=== PATIENT | female | born 1985 | race African-American/Black ===

== ENCOUNTER 2016-12-26 14:07 | Emergency (ER) | payer MEDICAID ==
[~2016-12-26] VITALS: Ht 157.5 cm; Wt 68.0 kg
[2016-12-26 14:09] VITALS: BP 153/76; PULSE 78; RESP 20; TEMP 97.9; O2SAT 100
--- NOTE | 2016-12-26 14:44 | PD ---
HPI Chief Complaint: Injury Time Seen by Provider: 14:39 Travel History International Travel<30 days: No Contact w/Intl Traveler<30days: No Traveled to known affect area: No History of Present Illness HPI 31-year-old Afro-Ind[place]ian female coming in with 3 day history of right dorsal hand and forearm pain. Patient states she was working, when the door in the room was caught by the wind and slammed into her right forearm. She states at first it wasn't that bad but has gotten progressively worse over the past 3 days. Patient states increased pain with gripping, trying to lift, or flexion and extension of the wrist. Patient states no pain in the elbow or shoulder. Patient has not taken anything for it. She states the pain is an 8/10. It is worse with movement or compression. She has no other injuries. She is allergic to shellfish. PFSH Past Medical History Depression: Yes Diminished Hearing: No Respiratory: Yes (FREQUENT BRONCHITIS) Immunizations Current: Yes : 4 Para: 3 Miscarriage: 1 Tubal Ligation: Yes (2009) Past Surgical History Abdominal Surgery: Yes (C SEC X 4) Section: Yes Hysterectomy: No (tubal) Social History Alcohol Use: Yes (OCC.) Tobacco Use: No Substance Use: Yes (MARIJUANA) Allergies-Medications (Allergen,Severity, Reaction): Coded Allergies: Shellfish (Verified Allergy, Mild, HIVES, 11/23/15) Reported Meds & Prescriptions Reported Meds & Active Scripts Active No Active Prescriptions or Reported Medications Review of Systems Except as stated in HPI: all other systems reviewed are Neg General / Constitutional: No: Fever Eyes: No: Visual changes HENT: No: Headaches Cardiovascular: No: Chest Pain or Discomfort Respiratory: No: Shortness of Breath Gastrointestinal: No: Abdominal Pain Genitourinary: No: Dysuria Musculoskeletal: Positive: Myalgias, Limited ROM, Pain (see history of present illness.), No: Arthralgias Skin: No Rash Neurologic: No: Weakness Psychiatric: No: Depression Endocrine: No: Polydipsia Hematologic/Lymphatic: No: Easy Bruising Physical Exam Narrative GENERAL: Patient appears in gbop-ho-wfghzjxn distress. SKIN: Warm and dry. No obvious signs of trauma. Normal color. Normal turgor. No ecchymosis. HEAD: Atraumatic. Normocephalic. EYES: Pupils equal and round. No scleral icterus. No injection or drainage. ENT: No nasal bleeding or discharge. Mucous membranes pink and moist. Normal pharynx. NECK: Trachea midline. Neck is supple nontender. CARDIOVASCULAR: Regular rate and rhythm. RESPIRATORY: No accessory muscle use. Clear to auscultation. Breath sounds equal bilaterally. GASTROINTESTINAL: Abdomen soft, non-tender, nondistended. Hepatic and splenic margins not palpable. MUSCULOSKELETAL: Extremities without clubbing, cyanosis, or edema. No obvious deformities. Patient has pain with palpation to the right dorsal lateral hand and right dorsal forearm consistent with the extensor tendons. 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 It is worse with supination and pronation as well as with flexion and extension of the wrist. There is no pain in the right. NEUROLOGICAL: Awake and alert. No obvious cranial nerve deficits. Motor grossly within normal limits. Five out of 5 muscle strength in the arms and legs. Normal speech. PSYCHIATRIC: Appropriate mood and affect; insight and judgment normal. Data Data Last Documented VS Vital Signs Date Time Temp Pulse Resp B/P Pulse Ox O2 Delivery O2 Flow Rate FiO2 12/26/16 14:36 Room Air 12/26/16 14:09 97.9 78 20 153/76 100 Orders Forearm (2vws) (12/26/16 14:37) Wrist, Complete ([id number]) (12/26/16 14:37) Ice/Cold Pack (12/26/16 14:37) Ibuprofen (Motrin) (12/26/16 14:45) Splinting (12/26/16 ) Sling Cradle Arm (12/26/16 ) MDM Medical Decision Making Medical Screen Exam Complete: Yes Emergency Medical Condition: Yes Differential Diagnosis Right forearm contusion. Right forearm tendinitis. Possible fracture. Possible compartment syndrome. Narrative Course Patient is medically stable at time of exam. Patient is given 800 mg of ibuprofen by mouth. X-rays of the right wrist and forearm are ordered. Forearm x-ray is negative. Wrist x-ray shows possible triquetral fracture of unknown duration. Patient is placed in a sugar tong splint with sling. Patient is given tramadol 50 mg one every 6 hours when necessary pain. Patient follow-up with Dr. Yoo to ensure healing and verify true fracture. Note for work is given. Patient is to wear the splint and sling at all times until cleared by the hand surgeon. Diagnosis Primary Impression: Right wrist fracture Qualified Code: S62.101A - Right wrist fracture, closed, initial encounter Referrals: Dennis Yoo III, MD call for appointment Patient Instructions: General Instructions Departure Forms: Work Release Enter return to work date: Dec 27, 2016 Special Instructions: Patient cannot use right hand or arm until cleared by orthopedic. Additional Instructions: Wrist x-ray shows possible triquetral fracture of unknown duration. Patient is placed in a sugar tong splint with sling. Patient is given tramadol 50 mg one every 6 hours when necessary pain. Patient follow-up with Dr. Yoo to ensure healing and verify true fracture. Note for work is given. Patient is to wear the splint and sling at all times until cleared by the hand surgeon. Med/Other Pt SpecificInfo: Prescription(s) given Scripts No Active Prescriptions or Reported Meds Disposition: 01 DISCHARGE HOME Condition: Stable Damon Rivera Dec 26, 2016 14:44
[2016-12-26] MEDS ORDERED: IBUPROFEN 800 MG TAB PO ONE (14:45)
--- NOTE | 2016-12-26 15:08 | RADRPT ---
EXAM DATE/TIME: 12/26/2016 14:56 [facility] COMPARISON: No previous studies available for comparison. INDICATIONS : Right wrist pain, door slammed on wrist. MEDICAL HISTORY : None. SURGICAL HISTORY : None. ENCOUNTER: Initial ACUITY: 4 - 6 days PAIN SCORE: 10/10 LOCATION: Right wrist FINDINGS: 3 views of the right wrist. 4 mm ossific density posteriorly on the lateral view likely representing an age-indeterminate triquetrum fracture. No other evidence of fracture. Alignment within normal limi ts. CONCLUSION: Age-indeterminate small dorsal triquetrum fracture. Mariusz Jimenez MD on December 26, 2016 at 15:04 Board Certified Radiologist. This report was verified electronically.
--- NOTE | 2016-12-26 15:09 | RADRPT ---
EXAM DATE/TIME: 12/26/2016 14:59 [facility] COMPARISON: No previous studies available for comparison. INDICATIONS : Right forearm pain, door slammed on arm. MEDICAL HISTORY : None. SURGICAL HISTORY : None. ENCOUNTER: Initial ACUITY: 4 - 6 days PAIN SCORE: 10/10 LOCATION: Right distal forearm FINDINGS: 2 views of the right forearm. Bone alignment within normal limits. No evidence of fracture. CONCLUSION: No evidence of fracture. Mariusz Jimenez MD on December 26, 2016 at 15:06 Board Certified Radiologist. This report was verified electronically.
[2016-12-26] MEDS ORDERED: TRAM50TA PO (15:34)
== END 2016-12-26 16:48 | disposition home or self-care (01) ==
LOC: NEPB 14:07
DX: S62.111A Displaced fracture of triquetrum [cuneiform] bone, right wrist, initial encounter for closed fracture (principal); W23.0XXA Caught, crushed, jammed, or pinched between moving objects, initial encounter
CPT/HCPCS: 29125; 73090; 73110

== ENCOUNTER 2017-01-12 09:19 | Emergency (ER) | payer MEDICAID ==
[~2017-01-12] VITALS: Ht 157.5 cm; Wt 78.0 kg
[~2017-01-12 09:19] MED LIST: TRAM50TA PO
[2017-01-12 09:21] VITALS: BP 159/78; PULSE 74; RESP 20; TEMP 97.8; O2SAT 98
--- NOTE | 2017-01-12 09:47 | PD ---
HPI Chief Complaint: Injury Time Seen by Provider: 09:47 Travel History International Travel<30 days: No Contact w/Intl Traveler<30days: No Traveled to known affect area: No History of Present Illness HPI 31-year-old female presents to the emergency room for evaluation of right wrist pain. 3 weeks ago patient sustained an injury to her right wrist after a door flung open onto her wrist. She was seen in our emergency department at that time and diagnosed with a right triquetral fracture, placed in a splint and instructed to follow up with hand specialist. She has not followed up with a hand specialist. She is here today because she is having pain in her right wrist and has not had follow-up. Denies any new injury or trauma to her wrist. Denies any numbness or tingling, weakness, fever, chills, swelling. No other complaints. PFSH Past Medical History Depression: Yes Diminished Hearing: No Respiratory: Yes (FREQUENT BRONCHITIS) Immunizations Current: Yes LMP: 12/19/16 : 4 Para: 3 Miscarriage: 1 Tubal Ligation: Yes (2009) Past Surgical History Abdominal Surgery: Yes (C SEC X 4) Section: Yes Hysterectomy: No (tubal) Social History Alcohol Use: Yes (OCC.) Tobacco Use: No Substance Use: Yes (MARIJUANA) Allergies-Medications (Allergen,Severity, Reaction): Coded Allergies: Shellfish (Verified Allergy, Mild, HIVES, 01/12/17) Reported Meds & Prescriptions Reported Meds & Active Scripts Active Tramadol (Tramadol HCl) 50 Mg Tab 50 Mg PO Q6H PRN Review of Systems Except as stated in HPI: all other systems reviewed are Neg Physical Exam Narrative GENERAL: Well-nourished and well-developed pleasant female patient in no acute distress who is nontoxic appearing. SKIN: Warm and dry. HEAD: Normocephalic and atraumatic. EYES: No injection, drainage, or hyphema noted. PERRLA. EOMI. ENT: No nasal drainage noted. Oropharynx is clear. NECK: Supple and the trachea is midline. CARDIOVASCULAR: Regular rate and rhythm. RESPIRATORY: Breath sounds are equal bilaterally with no accessory muscle use, wheezing, rhonchi, or crackles. MUSCULOSKELETAL: Tenderness to palpation of radial aspect of right wrist. No tenderness along the ulnar aspect. No swelling. Patient is able to make a fist , international representative strength is 5/5. No obvious deformities, swelling, cyanosis, or ecchymosis is present throughout the upper and lower extremities. Patient has full range of motion without any signs of neurovascular compromise. Capillary refills within normal limits. NEUROLOGICAL: Awake, alert, and oriented. Normal speech and gait. Cranial nerves are grossly intact. Data Data Last Documented VS Vital Signs Date Time Temp Pulse Resp B/P Pulse Ox O2 Delivery O2 Flow Rate FiO2 01/12/17 09:21 97.8 74 20 159/78 98 Room Air Orders Splint Or Brace Apply/Monitor (01/12/17 09:46) Mandatory Outpatient Referral (01/12/17 09:47) [facility] Medical Decision Making Medical Screen Exam Complete: Yes Emergency Medical Condition: Yes Differential Diagnosis Right wrist fracture versus wrist sprain versus splint replacement Narrative Course 21-year-old female presents to the emergency department for evaluation of right wrist pain for 3 weeks. Patient is afebrile, vital signs are stable. She sustained an injury to her right wrist 3 weeks ago and was seen here and diagnosed with a right triquetral fracture. I reviewed the x-rays and this is unknown whether it is acute or subacute. She is having pain on the radial side , she had no bony injuries to the radial side of her right wrist. The right wrist appears benign, right upper extremity is neurovascularly intact. She never followed up with hand specialist as an outpatient. We'll replace her splint and order a mandatory outpatient referral to hand surgery. She is stable for discharge. Diagnosis Primary Impression: Right wrist fracture Qualified Code: S62.101D - Right wrist fracture, with routine healing, subsequent encounter Referrals: Hand Surgeon Patient Instructions: General Instructions, Wrist Fracture in Adults (ED) Additional Instructions: Take [id number]-tyl-[id number] ibuprofen or tylenol as directed on the box. Follow-up with a hand surgeon. Return to the ED for any acute worsening of symptoms. Med/Other Pt SpecificInfo: No Change to Meds Disposition: 01 DISCHARGE HOME Condition: Stable Savana Devries Jan 12, 2017 09:47
== END 2017-01-12 10:41 | disposition home or self-care (01) ==
LOC: NEPB 09:19
DX: S62.111D Displaced fracture of triquetrum [cuneiform] bone, right wrist, subsequent encounter for fracture with routine healing (principal); Z86.59 Personal history of other mental and behavioral disorders; Z87.09 Personal history of other diseases of the respiratory system; X58.XXXD Exposure to other specified factors, subsequent encounter
CPT/HCPCS: 29125

== ENCOUNTER 2018-02-05 11:07 | Emergency (ER) | payer SELFPAY ==
[~2018-02-05] VITALS: Ht 157.5 cm; Wt 68.0 kg
[2018-02-05 11:14] VITALS: BP 137/83; PULSE 97; RESP 22; TEMP 99; O2SAT 98
[2018-02-05 12:20] LABS: BACTERIA, URINE RARE /hpf; BILIRUBIN, URINE NEG (NEG); BLOOD, URINE MOD (NEG); GLUCOSE,URINE NEG (NEG); KETONE, URINE NEG (NEG); MUCUS URINE FEW /lpf (OCC); NITRITE,URINE NEG (NEG); SQUAMOUS EPITHELIAL CELL URINE 12 /hpf (0-5); URINE COLOR YELLOW (YELLW/STRAW); URINE LEUKOCYTE ESTERASE TRACE (NEG)
[2018-02-05] MEDS ORDERED: OSEL75 PO (13:17)
--- NOTE | 2018-02-05 13:17 | PD ---
HPI . Myalgias Chief Complaint: Cold / Flu Symptoms Time Seen by Provider: 12:44 Travel History International Travel<30 days: No Contact w/Intl Traveler<30days: No Traveled to known affect area: No History of Present Illness HPI Patient presents with the acute onset of myalgias. They started yesterday. She rates her pain as 10/10. She took ibuprofen 400 mg earlier today with no relief of her symptoms. Associated symptoms include cough, subjective fevers and chills, urinary frequency. The context is that her daughter was seen in the pediatric emergency department just a little while ago and was diagnosed with the flu. [facility] Past Medical History Depression: Yes Diminished Hearing: No Respiratory: Yes (FREQUENT BRONCHITIS) Immunizations Current: Yes ?: Not LMP: 02/04/18 : 4 Para: 3 Miscarriage: 1 Tubal Ligation: Yes (2009) Past Surgical History Abdominal Surgery: Yes (C SEC X 4) Section: Yes Hysterectomy: No (tubal) Social History Alcohol Use: Yes (OCC.) Tobacco Use: No Substance Use: Yes (MARIJUANA) Allergies-Medications (Allergen,Severity, Reaction): Coded Allergies: shellfish derived (Unverified Allergy, Mild, HIVES, 07/07/17) Reported Meds & Prescriptions Reported Meds & Active Scripts Active Tramadol (Tramadol HCl) 50 Mg Tab 50 Mg PO Q6H PRN Review of Systems Except as stated in HPI: all other systems reviewed are Neg General / Constitutional: Positive: Fever, Chills HENT: Positive: Rhinorrhea, Congestion Respiratory: Positive: Cough Genitourinary: Positive: Frequency Musculoskeletal: Positive: Myalgias Physical Exam Narrative GENERAL: Awake and alert and in no acute distress. SKIN: Warm and dry. HEAD: Normocephalic/atraumatic. EYES: Pupils are equal. Extraocular movements are intact. ENT: Edema of the nasal turbinates. Oropharynx is clear. NECK: Normal range of motion. No cervical lymphadenopathy. Neck is supple. CARDIOVASCULAR: Regular rate and rhythm. RESPIRATORY: Nonlabored respirations. Lungs are clear to auscultation. MUSCULOSKELETAL: Atraumatic. NEUROLOGICAL: Nonfocal. PSYCHIATRIC: Appropriate mood and affect. Data Data Last Documented VS Vital Signs Date Time Temp Pulse Resp B/P (MAP) Pulse Ox O2 Delivery O2 Flow Rate FiO2 02/05/18 11:14 99.0 97 22 137/83 (101) 98 Orders Orders Urinalysis - C+S If Indicated (02/05/18 11:16) Ed Urine Pregnancytest Poc (02/05/18 11:16) Labs Laboratory Tests Test 02/05/18 11:22 Urine Color YELLOW Urine Turbidity HAZY Urine pH 8.0 Urine Specific [place] 1.034 Urine Protein TRACE mg/dL Urine Glucose (UA) NEG mg/dL Urine Ketones NEG mg/dL Urine Occult Blood MOD Urine Nitrite NEG Urine Bilirubin NEG Urine Urobilinogen LESS THAN 2.0 MG/DL Urine Leukocyte Esterase TRACE Urine RBC 3 /hpf Urine WBC 3 /hpf Urine Squamous Epithelial Cells 12 /hpf Urine Bacteria RARE /hpf Urine Mucus FEW /lpf Microscopic Urinalysis Comment CULT NOT INDICATED MDM Medical Decision Making Medical Screen Exam Complete: Yes Emergency Medical Condition: Yes Differential Diagnosis Differential diagnosis of fever includes but is not limited to viral illness, strep throat, otitis media, pneumonia, sepsis, UTI Narrative Course This patient presents with a chief complaint of myalgias, subjective fevers and chills, cough, rhinorrhea. Her daughter was just diagnosed with the flu. UA is negative for infection. She will be treated for the flu with Tamiflu. She has been instructed in the treatment of symptoms. Diagnosis Primary Impression: Influenza Patient Instructions: General Instructions, Influenza (DC) Additional Instructions: I recommend the use of a Neti Pot. You may use a nasal spray such as Afrin for up to 3 days as needed for nasal congestion. You may take an ajxz-tde-isgpuxu antihistamine such as Zyrtec, Cathryn or Claritin as needed for runny secretions. You may take pseudoephedrine as needed for congestion. You will need to sign for this at the pharmacy. You may take plain Mucinex, 1200 mg twice a day as needed for thick secretions. You may take a cough syrup such as Delsym as needed for cough. Motrin as needed for fever and body aches. Throat lozenges/sprays as needed for sore throat. Warm salt water gargles for sore throat. Hot tea with lemon and honey also helps soothe a sore throat. Med/Other Pt SpecificInfo: Prescription(s) given Scripts Oseltamivir (Tamiflu) 75 Mg Cap 75 MG PO BID for Mgmt Viral Infection for 5 Days, #10 CAP 0 Refills Prov: Dalia Haas MD 02/05/18 Disposition: 01 DISCHARGE HOME Condition: Stable Dalia Haas MD Feb 05, 2018 13:17
[2018-02-05 13:54] VITALS: BP 145/92; PULSE 114; RESP 16; O2SAT 100
== END 2018-02-05 14:00 | disposition home or self-care (01) ==
LOC: NEPD 11:07
DX: J11.1 Influenza due to unidentified influenza virus with other respiratory manifestations (principal); F12.90 Cannabis use, unspecified, uncomplicated
CPT/HCPCS: 81001; 84703; 99283

== ENCOUNTER 2018-05-10 06:56 | Emergency (ER) | payer MEDICAID ==
[~2018-05-10] VITALS: Ht 160 cm; Wt 80.0 kg
[~2018-05-10 06:56] MED LIST changes: +OSEL75 PO
[2018-05-10 06:59] VITALS: BP 141/83; PULSE 85; RESP 16; TEMP 98.4; O2SAT 97
[2018-05-10] MEDS ORDERED: MOME17I EACH NARE (07:23)
[2018-05-10] MEDS ORDERED: BENZ100 PO (07:23)
--- NOTE | 2018-05-10 07:24 | PD ---
HPI Chief Complaint: Cold / Flu Symptoms Time Seen by Provider: 07:03 Travel History International Travel<30 days: No Contact w/Intl Traveler<30days: No Traveled to known affect area: No History of Present Illness HPI 33-year-old female presents to the emergency department complaining of cough and congestion 2 days. Reports her saliva is getting stuck in the back of her throat when she lays down flat and is causing her to cough and causing her to wheeze. Denies ear pain, sore throat. Denies fever, vomiting. Denies chest tightness, shortness of breath. Has been using Mucinex for symptom management. Symptoms are mild in severity. Worse with lying down flat. Better with sitting up. No primary care provider. Allergies to shrimp. Denies significant past medical history. Has no other medical complaints. No other modifying factors or associated signs and symptoms. PFSH Past Medical History Depression: Yes Diminished Hearing: No Respiratory: Yes (FREQUENT BRONCHITIS) Immunizations Current: Yes ?: Not : 4 Para: 3 Miscarriage: 1 Tubal Ligation: Yes (2009) Past Surgical History Abdominal Surgery: Yes (C SEC X 4) Section: Yes (X 4) Social History Alcohol Use: Yes (OCC.) Tobacco Use: No Substance Use: Yes (MARIJUANA) Allergies-Medications (Allergen,Severity, Reaction): Coded Allergies: shellfish derived (Unverified Allergy, Mild, HIVES, 07/07/17) Reported Meds & Prescriptions Reported Meds & Active Scripts Active Nasonex Nasal [place] (Mometasone Furoate) 50 Mcg/Act Naspr 2 [place] EACH NARE DAILY PRN Tessalon Perles (Benzonatate) 100 Mg Cap 100 Mg PO TID PRN Tamiflu (Oseltamivir Phosphate) 75 Mg Cap 75 Mg PO BID 5 Days Tramadol (Tramadol HCl) 50 Mg Tab 50 Mg PO Q6H PRN Review of Systems Except as stated in HPI: all other systems reviewed are Neg Physical Exam Narrative GENERAL: Well-nourished, well-developed black female patient, in no acute distress; afebrile, nontoxic-appearing SKIN: Warm and dry. No rash. HEAD: Atraumatic. Normocephalic. EYES: Pupils equal and round. No scleral icterus. No injection or drainage. ENT: Mucosa pink and moist. No erythema or exudates. No uvular edema. No uvular , palatal, or tonsillar deviation. Airway patent. EARS: Bilateral pinnae and external canals appear within normal limits. Bilateral tympanic membranes without erythema, dullness or perforation. NECK: Trachea midline. No lymphadenopathy. CARDIOVASCULAR: Regular rate and rhythm. No murmur appreciated. RESPIRATORY: No accessory muscle use. Clear to auscultation. Breath sounds equal bilaterally. No retractions or tachypnea. GASTROINTESTINAL: Abdomen soft, non-tender, nondistended. Hepatic and splenic margins not palpable. Bowel sounds are active 4 quadrants. MUSCULOSKELETAL: No obvious deformities. No clubbing. No cyanosis. No edema. NEUROLOGICAL: Awake and alert. Oriented 3. No obvious cranial nerve deficits. Motor grossly within normal limits. Normal speech. Moves all extremities. 5/5 strength to all extremities. PSYCHIATRIC: Appropriate mood and affect; insight and judgment normal. Data Data Last Documented VS Vital Signs Date Time Temp Pulse Resp B/P (MAP) Pulse Ox O2 Delivery O2 Flow Rate FiO2 05/10/18 06:59 98.4 85 16 141/83 (102) 97 Orders Orders Ed Discharge Order (05/10/18 07:24) MDM Medical Decision Making Medical Screen Exam Complete: Yes Emergency Medical Condition: Yes Medical Record Reviewed: Yes Differential Diagnosis Viral illness, allergic rhinitis, bronchitis Narrative Course 33-year-old female physical exam and HPI consistent with viral illness. Discussed viral illness and symptom management. Nasonex nasal spray and Tessalon Perles prescribed for home. Instructed patient to follow up with primary care provider. Patient verbalizes understanding and agreement with treatment plan. Patient is medically cleared and stable for discharge. Discussed reasons to return to the emergency department. Patient agrees with treatment plan. The patients vital signs are stable and the patient is stable for outpatient follow-up and treatment. Patient discharged home, stable and in no acute distress. Diagnosis Primary Impression: Viral illness Referrals: [facility] Primary Care Physician Patient Instructions: Cold Symptoms (ED), General Instructions, Safe Use of Cough and Cold Medicines (ED) Additional Instructions: Ibuprofen or Tylenol as directed and as needed to reduce fever; may alternate ibuprofen and Tylenol as needed every 3 hours to minimize fever Binb-egu-vumsnpt cold/flu medications as directed and as needed for symptom management Get plenty of sleep/rest Drink plenty of fluids to prevent dehydration; such as Gatorade, Powerade, Pedialyte [place] diet to encourage nutrition such as crackers, fruit, applesauce, toast, soup etc. Use an air humidifier/turn off ceiling fans Follow-up with your primary care provider within 1 day Return immediately to the emergency department with worsening of symptoms Med/Other Pt SpecificInfo: Prescription(s) given Scripts Mometasone Nasal [place] (Nasonex Nasal [place]) 50 Mcg/Act Naspr 2 SPRAY EACH NARE DAILY Y for NASAL CONGESTION AND/OR COUGH, #1 BOTTLE 0 Refills Prov: Savana Moran 05/10/18 Benzonatate (Tessalon Perles) 100 Mg Cap 100 MG PO TID Y for COUGH, #10 CAP 0 Refills Prov: Savana Moran 05/10/18 Disposition: 01 DISCHARGE HOME Condition: Stable Savana Moran May 10, 2018 07:23
== END 2018-05-10 08:00 | disposition home or self-care (01) ==
LOC: NEPD 06:56
DX: B34.9 Viral infection, unspecified (principal); R05 Cough; R06.2 Wheezing; R09.89 Other specified symptoms and signs involving the circulatory and respiratory systems; Z87.09 Personal history of other diseases of the respiratory system; Z86.59 Personal history of other mental and behavioral disorders
CPT/HCPCS: 99283